=== PATIENT | male | born 1950 | race Caucasian/White ===

== ENCOUNTER 2021-04-26 19:31 | Inpatient (IN) | payer BC, MEDICARE, SELFPAY ==
[2021-04-26] VITALS (10 sets, daily range): BP systolic 108–129; BP diastolic 68–83; PULSE 82–100; RESP 16–20; TEMP 36.4–36.6; O2SAT 96–100; BMI 28.5; BMI 25.9
--- NOTE | 2021-04-26 | IR_ITS ---
APPROVED REPORT Patient Location: Emergent Structural Design Engineer: CHELSI Nascimento RT (R) PROCEDURES Left heart catheterization, coronary angiography. Successful balloon angioplasty and stenting of a subtotally occluded proximal LAD with MONI I flow reduced to 0% with MONI-3 flow utilizing a 2.5 into 22 mm resolute drug-eluting stent. Successful angioplasty and stenting of a 99% stenosed second obtuse marginal branch reduced to 0% with MONI-3 flow utilizing a 2.5 into 34 mm resolute drug-eluting stent No LV gram performed INDICATION Non-STEMI with ongoing discomfort Informed consent was obtained prior to the procedure. COMPLICATIONS None Estimated Blood Loss: Less than 20 ML TECHNIQUE One percent lidocaine was used to anesthetize the right groin. The right femoral artery was accessed via the Seldinger technique. A 4-Czech sheath was placed in the right femoral artery. The JL-4 and JR-4 catheter was also used to perform left heart catheterization left ventriculogram and selective coronary angiogram. At the end of the procedure the patient was transferred to the post-op holding area in stable condition for arterial sheath removal. FL 3.5 guiding catheter was used. 0.014 inch whisper wire was used to cross the left anterior descending coronary artery. 2.5 to 12 mm Euphora was used to dilate the proximal LAD. Intravenous heparin used in the procedure. ACT was 306. 2.5 to 22 mm resolute stent was then deployed at 16 eleonora. 0% residual MONI-3 flow was noted. There is a stepdown from the stent to the mid LAD with mild diffuse disease distally. Small diagonal branch is trapped inside the LAD less than 2 mm in size. Next a 0.014 inch BMW wire was passed into the obtuse marginal. A 2.25 into 12 mm NC Euphora was passed into this lesion. Balloon inflation carried up to 12 eleonora. Next a 2.5 into 34 mm resolute stent was deployed at this location. 0% residual MONI-3 flow was noted ANGIOGRAPHIC RESULTS The left main artery Left main is with mild plaque. The left anterior descending artery Subtotally occluded with MONI I flow The circumflex artery 50% mid circumflex stenosis second obtuse marginal with 99% stenosis The right coronary artery Multiple areas of 60% to 70% stenosis PLV branch 80 to 85% stenosis The MENDOZA ventriculogram reveals Not done IMPRESSION Non-STEMI with diaphoresis and chest discomfort. Successful revascularization of the LAD and second obtuse marginal with placement of stents outlined above PLAN 1. Dual antiplatelet therapy for 1 year, continued medical therapy, risk factor modification. LDL goal less than 70. RCA and PLV stenosis may be addressed at a later date if patient symptomatic Electronically signed by : Blaire Glez MD 04/26/2021 22:11:17
--- NOTE | 2021-04-26 19:32 | ECG_ITS ---
APPROVED REPORT Exam: Resting ECG HR:91 bpm ECG Measurements Heart Rate 91 AXES NH 176 P 61 QRSd 87 QRS 50 QT 381 T 93 QTc 430 Conclusion SINUS RHYTHM POSSIBLE RIGHT VENTRICULAR CONDUCTION DELAY [RSR (QR) IN V1/V2] SEPTAL MYOCARDIAL INFARCTION , OF INDETERMINATE AGE [40+ ms Q WAVE IN V1/V2] ABNORMAL ECG UNCONFIRMED REPORT Electronically signed by : Gomez Gar MD 04/27/2021 15:32:56
--- NOTE | 2021-04-26 19:32 | CT_ITS ---
PROCEDURE INFORMATION: Exam: CT Head Without Contrast Exam date and time: 04/26/2021 7:32 PM Age: 70 years old Clinical indication: Dizziness TECHNIQUE: Imaging protocol: Computed tomography of the head without contrast. Radiation optimization: All CT scans at this facility use at least one of these dose optimization techniques: automated exposure control; mA and/or kV adjustment per patient size (includes targeted exams where dose is matched to clinical indication); or iterative reconstruction. COMPARISON: No relevant prior studies available. FINDINGS: Brain: Mild generalized brain volume loss. Small remote lacunar infarcts in the bilateral basal ganglia regions. Mild patchy periventricular low attenuation suggesting chronic microangiopathy. No loss of limon-white differentiation or evidence of acute ischemia. No mass effect or midline shift. No intracranial hemorrhage. Cerebral ventricles: Within expected limits for age and brain volume status. No ventricular outflow obstruction. Paranasal sinuses: Mucosal thickening is present throughout the paranasal sinuses, suggesting chronic sinusitis. Mastoid air cells: Visualized mastoid air cells are well aerated. Bones/joints: No depressed or calvarial fracture. Soft tissues: Unremarkable. IMPRESSION: 1. No evidence of an acute intracranial abnormality. 2. Senescent changes with presumed sequela of chronic microangiopathy.
--- NOTE | 2021-04-26 19:41 | XR_ITS ---
PROCEDURE INFORMATION: Exam: XR Chest Exam date and time: 04/26/2021 7:41 PM Age: 70 years old Clinical indication: Other: Dizziness TECHNIQUE: Imaging protocol: XR of the chest. Views: 1 view. COMPARISON: No relevant prior studies available. FINDINGS: Lungs: Mild bibasilar subsegmental atelectasis. No consolidation. Pleural spaces: No pleural effusion. No pneumothorax. Heart/Mediastinum: Normal heart size. Bones/joints: Mild degenerative changes. IMPRESSION: Mild bibasilar atelectasis.
[2021-04-26 19:42] LABS: Basophils # 0.4 K/mm3 (0-0.2); Basophils % 3.8 % (0.1-2.0); Eosinophils # 0.2 K/mm3 (0.0-0.4); Eosinophils % 1.6 % (0.1-12.0); Hemoglobin 17.5 g/dL (14.1-18.0); Lymphocytes # 2.6 K/mm3 (0.7-4.5); Mean Corpuscular HGB Conc 31.9 g/dL (31.8-35.4); Mean Corpuscular Hemoglobin 29.4 pg (27.0-31.2); Mean Corpuscular Volume 92.3 fl (80-94); Mean Platelet Volume 10.5 fl (7.4-10.4); Monocytes # 0.7 K/mm3 (0.1-1.0); Monocytes % 6.3 % (1.7-9.3); Neutrophils # 7.1 K/mm3 (1.8-7.8); Neutrophils % 67.1 % (37.0-80.0); Platelet Count 241 K/mm3 (142-424); Red Blood Count 5.96 M/mm3 (4.60-6.20); Red Cell Distribution Width 13.3 % (11.5-17.5); White Blood Count 10.5 K/mm3 (4.8-10.8)
[2021-04-26 19:49] LABS: Alanine Aminotransferase 27 U/L (12-78); Albumin Level 4.6 g/dl (3.5-5.0); Albumin/Globulin Ratio 1.3 (1.1-1.8); Alkaline Phosphatase 93 U/L (38-126); Anion Gap 18.2 mEq/L (5-15); Aspartate Amino Transferase 26 U/L (17-59); Bilirubin,Total 0.8 mg/dl (0.2-1.3); Blood Urea Nitrogen 15 mg/dl (9-20); Calcium 9.6 mg/dl (8.4-10.2); Carbon Dioxide 23 mmol/L (22.0-30.0); Chloride 99 mmol/L (98-107); Creatinine Clearance Estimated 91 mL/min (50-200); Estimated Glomerular Filt Rate 95 ml/min (>60); GFR (African American) 115 ML/MIN (>60); Globulin 3.5 g/dL (1.3-3.2); Potassium 4.2 mmoL/L (3.5-5.1); Sodium 136 mmol/L (136-145); Total Protein,Serum 8.1 g/dl (6.3-8.2)
--- NOTE | 2021-04-26 19:50 | PC.NURSE ---
on phone with patient to go to cathead worker
--- NOTE | 2021-04-26 19:51 | HMH.EDDIZZ ---
ED Disposition Clinical Impression: Near syncope, Hyperglycemia STEMI (ST elevation myocardial infarction) Qualifiers: Involved coronary artery: unspecified coronary artery Qualified Code(s): I21.3 - ST elevation (STEMI) myocardial infarction of unspecified site Disposition: Admitted As Inpatient Condition on Discharge: Serious Referrals: Provider,Referral, [Primary Care Provider] - - Critical Care Critical Care Time: No Attestation: On 04/26/21, the high probability of a clinically significant, sudden or life threatening deterioration of the following system(s) required my full and direct attention, intervention and personal management. The time I documented below is in addition to time spent performing reported procedures but includes the following listed in this critical care notation. Medical Decision Making - Medical Records Medical records reviewed: Yes: I reviewed the patient's medical records. - Rasheed Inquiry Pt receiving controlled substance: No Vital Signs: 04/26/21 19:30 Temperature 97.8 F Temperature Source Oral Pulse Rate [Right] 86 Respiratory Rate 20 Blood Pressure [Right Arm] 129/83 Blood Pressure Mean [Right Arm] 98 02 Sat by Pulse Oximetry 100 - Lab Data Lab Results 04/26/21 19:31: WBC 10.5, RBC 5.96, Hgb 17.5, Hct 55.0 H, MCV 92.3, MCH 29.4, MCHC 31.9, RDW 13.3, Plt Count 241, MPV 10.5 H, Neut % (Auto) 67.1, Lymph % (Auto) 25.0, [place] % (Auto) 6.3, Eos % (Auto) 1.6, Baso % (Auto) 3.8 H, Neut # (Auto) 7.1, Lymph # (Auto) 2.6, [place] # (Auto) 0.7, Eos # (Auto) 0.2, Baso # (Auto) 0.4 H Result diagrams: 04/26/21 19:31 Orders (Tests/Meds): ED MEDICATIONS Generic Name Dose Route Start Last Admin Trade Name Freq PRN Reason Stop Dose Admin Sodium Chloride 1,000 mls @ 999 mls/hr 04/26/21 20:00 04/26/21 19:47 Sod Chlor 0.9% 1000ml Bag IV 04/26/21 21:00 999 mls/hr .Q1H1M CODY Administration Discontinued Medications Generic Name Dose Route Start Last Admin Trade Name Freq PRN Reason Stop Dose Admin Ondansetron HCl 4 mg 04/26/21 19:46 04/26/21 19:47 Ondansetron 4mg/2ml Vial IV 04/26/21 19:47 4 mg ONCE ONE Administration ORDERS Category Date Time Status CT head/brain wo con Stat Cat Scan 04/26/21 19:32 Ordered Chest XR -- portable [XR chest portable] Stat Exams 04/26/21 19:41 Ordered XR chest 2V Stat Exams 04/26/21 19:32 Stop Req C-Reactive Protein Stat Lab 04/26/21 19:31 Received Comprehensive Metabolic Panel Stat Lab 04/26/21 19:31 Received ESR [Erythrocyte Sedimentation Rate] Stat Lab 04/26/21 19:31 Received Free T4 (Free Thyroxine) Stat Lab 04/26/21 19:31 Received Hemoglobin A1C Stat Lab 04/26/21 19:31 Received Procalcitonin Stat Lab 04/26/21 19:31 Received TSH [Thyroid Stimulating Hormone] Stat Lab 04/26/21 19:31 Received Troponin I Q3H Lab 04/26/21 22:45 Ordered Troponin I Q3H Lab 04/27/21 01:45 Ordered Troponin I Stat Lab 04/26/21 19:31 Received Urinalysis and Microscopic Stat Lab 04/26/21 19:32 Ordered - ECG Data Tracing #1 I reviewed this ECG and interpreted as documented below: Normal jugular rate at 91 bpm, HI interval 176 ms, normal QTC. Sinus rhythm with elevation in V1, V2 as well as V3. Concern for ST elevation infarct. ECG initial impression date: 04/26/21 ECG initial impression time: 19:34 - HERMAN Score for Stemi Age of Patient: 70-79 years old Heart Rate: 70-89 bpm Systolic Blood Pressure: 120-139 mmhg Serum Creatinine: <0.40 mg/dl CHF Killip Class: IV-Cardiogenic Shock Other Risk Factors: ST Segment Deviation Stemi Risk Score: 206 Risk Stratification: 155-319 = High Risk Medical Decision Narrative: 70-year-old male presented to the emergency department after what appears to be a near syncopal episode. The patient is extremely nauseous on initial examination. He is very diaphoretic. Does not endorse any chest pain at this time, however he does have EKG changes concerning for
[2021-04-26 19:52] LABS: Glucose 413 mg/dl (74-100)
[2021-04-26 19:54] LABS: Hemoglobin A1C 12.8 % (4.0-6.0)
[2021-04-26 19:55] LABS: C-Reactive Protein 3.8 mg/L (0-4)
--- NOTE | 2021-04-26 20:02 | PC.NURSE ---
patients given his watch by Abrahan Carias RN
[2021-04-26 20:04] LABS: Acetone, Serum (Rapid) None Detected (None Detect)
[2021-04-26 20:05] LABS: Coronavirus 19, PCR Not Detected (NotDetected); Influenza A, PCR Not Detected (NotDetected); Influenza B, PCR Not Detected (NotDetected)
[2021-04-26 20:05] LABS: Troponin I 0.01 ng/ml (0.00-0.034)
[2021-04-26 20:08] LABS: Procalcitonin 0.053 ng/mL (0.0-2.0)
[2021-04-26 20:09] LABS: Free T4 (Free Thyroxine) 1.37 ng/dl (0.78-2.19)
[2021-04-26 20:15] LABS: Cholesterol 230 mg/dl (140-200); HDL Cholesterol 46 mg/dl (40-60); Triglycerides 135 mg/dl (30-150); VLDL Cholesterol 27 mg/dL (0-40)
[2021-04-26 20:26] LABS: Direct LDL Cholesterol 150.47 mg/dL (100-129)
[2021-04-26 20:37] LABS: Erythrocyte Sedimentation Rate 8 mm/hr (0-20)
--- NOTE | 2021-04-26 22:34 | PC.NURSE ---
patient up to floor from manager cardiac cath at this time.
[2021-04-26 22:44] LABS: CATHL Activated Clotting Time 231 SEC (74-125)
[2021-04-26 22:45] LABS: CATHL Activated Clotting Time 292 SEC (74-125)
[2021-04-26 22:45] LABS: CATHL Activated Clotting Time 306 SEC (74-125)
[2021-04-26 22:46] LABS: CATHL Activated Clotting Time 273 SEC (74-125)
[2021-04-26 22:54] LABS: POC Glucose,Bedside 443 (70-110)
[2021-04-27] VITALS (17 sets, daily range): BP systolic 95–109; BP diastolic 47–64; PULSE 80–90; RESP 16–20; TEMP 36.7–36.9; O2SAT 94–98; BMI 26.0
[2021-04-27 06:09] LABS: POC Glucose,Bedside 228 (70-110)
--- NOTE | 2021-04-27 06:18 | PC.NURSE ---
pt arrived to floor from catheterization laboratory technician this shift, right femoral cath site, with dressing in place, C/D/I, small amount of swelling noted at cath site, has remained on room air t/o shift, no complaints of SOA or chest pain, HR 82-94, systolic BP 97-116, FSBS have been elevated this shift, pt does state that he is not diabetic and does not use insulin, but was educated on the need for BS control and agreed to take insulin, pt stated during admission process that he had no health issues
[2021-04-27 07:13] LABS: Anion Gap 10.7 mEq/L (5-15); Blood Urea Nitrogen 13 mg/dl (9-20); Calcium 8.3 mg/dl (8.4-10.2); Carbon Dioxide 25 mmol/L (22.0-30.0); Chloride 106 mmol/L (98-107); Creatinine Clearance Estimated 84 mL/min (50-200); Estimated Glomerular Filt Rate 111 ml/min (>60); GFR (African American) 135 ML/MIN (>60); Glucose 239 mg/dl (74-100); Potassium 3.7 mmoL/L (3.5-5.1); Sodium 138 mmol/L (136-145)
[2021-04-27 07:16] LABS: Basophils # 0.1 K/mm3 (0-0.2); Eosinophils # 0.2 K/mm3 (0.0-0.4); Monocytes # 0.7 K/mm3 (0.1-1.0)
[2021-04-27 07:41] LABS: Basophils % 1.2 % (0.1-2.0); Eosinophils % 1.8 % (0.1-12.0); Hematocrit 47.5 % (42.0-52.0); Lymphocytes # 2.5 K/mm3 (0.7-4.5); Lymphocytes % 24.8 % (10-50); Mean Corpuscular HGB Conc 32.9 g/dL (31.8-35.4); Mean Corpuscular Hemoglobin 29.3 pg (27.0-31.2); Mean Platelet Volume 10.3 fl (7.4-10.4); Monocytes % 7.4 % (1.7-9.3); Neutrophils # 6.5 K/mm3 (1.8-7.8); Neutrophils % 64.8 % (37.0-80.0); Platelet Count 224 K/mm3 (142-424); Red Blood Count 5.34 M/mm3 (4.60-6.20); Red Cell Distribution Width 13.4 % (11.5-17.5); White Blood Count 9.9 K/mm3 (4.8-10.8)
[2021-04-27 07:47] LABS: Hemoglobin 15.6 g/dL (14.1-18.0)
--- NOTE | 2021-04-27 08:04 | HMH.PHAVTE ---
[facility] Pharmacy VTE Monitoring - Patient Demographics Admission date: 04/26/21 Report Date: 04/27/21 Time: 08:04 Allergies/Adverse Reactions: Patient Allergies No Known Allergies Allergy (Unverified 04/27/21 07:58) Height: 1.83 m Weight: 87.18 kg Patient Problems: Current Active Problems Near syncope (Acute) Hyperglycemia (Acute) STEMI (ST elevation myocardial infarction) (Acute) - VTE Risk Labs: VTE Related Lab Results Hgb 15.6 g/dL (14.1-18.0) D 04/27/21 06:36 Hct 47.5 % (42.0-52.0) 04/27/21 06:36 Plt Count 224 K/mm3 (142-424) 04/27/21 06:36 BUN 13 mg/dl (9-20) 04/27/21 06:36 Creatinine 0.70 mg/dl (0.66-1.25) 04/27/21 06:36 Estimated Creat Clear 84 mL/min (50-200) 04/27/21 06:36 Was VTE Risk Assessment Performed: Yes VTE Score: 4 VTE Risk Level: Low Risk - Prophylaxis VTE Prophylaxis Ordered?: Yes Types of VTE Prophylaxis: TEDS Knee High Location of Applied Device: Bilateral Lower Extremeties
--- NOTE | 2021-04-27 08:45 | HMH.HP ---
*Admission Date: 04/26/21 *Chief complaint: Dizziness *History of present illness: 70-year-old male presented to the emergency department after developing acute onset of lightheadedness, dizziness, nausea, shortness of breath at home while working on a vehicle. He never had any chest pain but in the ER had ST elevations in V1 and V2 and Wound Care Coordinator was activated. Patient was taken to the Wound Care Coordinator and underwent subsequent stenting of the LAD and second obtuse marginal. Cath report is below: ANGIOGRAPHIC RESULTS The left main artery Left main is with mild plaque. The left anterior descending artery Subtotally occluded with MONI I flow The circumflex artery 50% mid circumflex stenosis second obtuse marginal with 99% stenosis The right coronary artery Multiple areas of 60% to 70% stenosis PLV branch 80 to 85% stenosis The MENDOZA ventriculogram reveals Not done IMPRESSION Non-STEMI with diaphoresis and chest discomfort. Successful revascularization of the LAD and second obtuse marginal with placement of stents outlined above PLAN 1. Dual antiplatelet therapy for 1 year, continued medical therapy, risk factor modification. LDL goal less than 70. RCA and PLV stenosis may be addressed at a later date if patient symptomatic Patient has been admitted for telemetry monitoring post PA. At present he denies chest pain, shortness of breath. Patient has also been found to have diabetes with blood sugars over 400 through the emergency department. Patient has not received regular medical care as an adult per his choosing. He denies symptoms of hyperglycemia. [facility] History I have reviewed the patient's past medical history: Yes Medical History: Denies:: Cancer, Diabetes Mellitus Type 1, Diabetes Mellitus Type 2, MRSA *Have you ever received a pneumonia vaccine?: No *Have you received a flu vaccine this season?: No Other Surgeries: Yes: Hernia Repair Amputation: No Fractures: No - *Social History Smoking Status: Unknown if ever smoked Alcohol Intake: never *Occupational Status:: unemployed *Travel in the last 8 weeks: None Family Hx:: No significant family history Review of Systems - Review of Systems Review of systems:: pertinent systems reviewed and negative unless documented below - *Neurologic Denies headache(s) Meds Home Medications Medication Instructions Recorded Confirmed Type No Known Home Medications 04/26/21 04/26/21 History Allergies Allergy/AdvReac Type Severity Reaction Status Date / Time No Known Allergies Allergy Unverified 04/27/21 07:58 Exam Vital signs and Labs for Last 24 Hours: Temp Pulse Resp BP Pulse Ox 97.5 F L 85 16 109/62 L 97 04/26/21 22:35 04/27/21 06:00 04/27/21 06:00 04/27/21 06:00 04/27/21 06:00 Laboratory Results - last 24 hr 04/26/21 19:31: WBC 10.5, RBC 5.96, Hgb 17.5, Hct 55.0 H, MCV 92.3, MCH 29.4, MCHC 31.9, RDW 13.3, Plt Count 241, MPV 10.5 H, Neut % (Auto) 67.1, Lymph % (Auto) 25.0, [place] % (Auto) 6.3, Eos % (Auto) 1.6, Baso % (Auto) 3.8 H, Neut # (Auto) 7.1, Lymph # (Auto) 2.6, [place] # (Auto) 0.7, Eos # (Auto) 0.2, Baso # (Auto) 0.4 H 04/26/21 19:31: Sodium 136, Potassium 4.2, Chloride 99, Carbon Dioxide 23, Anion Gap 18.2 H, BUN 15, Creatinine 0.80, Estimated Creat Clear 91, Estimated GFR 95, Est GFR ( Amer) 115, Glucose 413 H*, Calcium 9.6, Total Bilirubin 0.8, AST 26, ALT 27, Alkaline Phosphatase 93, Troponin I 0.01, C-Reactive Protein 3.8, Total Protein 8.1, Albumin 4.6, Globulin 3.5 H, Albumin/Globulin Ratio 1.3, Procalcitonin 0.053, TSH 3.20 04/26/21 19:31: Hemoglobin A1c 12.8 H 04/26/21 19:31: Free T4 1.37 04/26/21 19:31: ESR 8 04/26/21 19:31: Acetone Level None detected 04/26/21 19:31: Triglycerides 135, Cholesterol 230 H, LDL Cholesterol Direct 150.47 H, VLDL Cholesterol 27, HDL Cholesterol 46, Cholesterol/HDL Ratio 5.0 H 04/26/21 20:00: SARS-CoV-2 (PCR) Not detected, Influenza A Untype (PCR) Not detected, Influenza Type B (PCR) Not detected
[2021-04-27 11:29] LABS: POC Glucose,Bedside 248 (70-110)
[2021-04-27 12:26] LABS: Troponin I 0.12 ng/ml (0.00-0.034)
[2021-04-27 16:50] LABS: POC Glucose,Bedside 262 (70-110)
[2021-04-27 21:29] LABS: POC Glucose,Bedside 245 (70-110)
[2021-04-28] VITALS (9 sets, daily range): BP systolic 89–121; BP diastolic 46–74; PULSE 78–93; RESP 16–20; TEMP 36.4–37; O2SAT 95–98; BMI 25.9
--- NOTE | 2021-04-28 05:08 | PC.NURSE ---
No acute changes this shift. Pt denies any discomfort or soa. (R) femoral cath site with DSG C/D/I. VSS. Pt remains on RA. Has ambulated to BR without difficulty. Medications administered per apr. FSBS 245 and 191. No other concerns. Will continue to monitor.
[2021-04-28 05:22] LABS: POC Glucose,Bedside 191 (70-110)
--- NOTE | 2021-04-28 07:43 | P.PN_ITS ---
Internal Medicine - PN: Subj *Date: 04/28/21 *Time: 07:43 Interval history: No acute events over the last 24 hours. Patient is ambulated without any further dizziness or syncope. He is tolerating diet. Exam Vital signs and Labs for Last 24 Hours: Temp Pulse Resp BP Pulse Ox 97.8 F 86 18 110/74 96 04/28/21 04:00 04/28/21 06:00 04/28/21 06:00 04/28/21 06:00 04/28/21 06:00 Laboratory Results - last 24 hr 04/27/21 06:36: WBC 9.9, RBC 5.34, Hgb 15.6 D, Hct 47.5, MCV 89.0, MCH 29.3, MCHC 32.9, RDW 13.4, Plt Count 224, MPV 10.3, Neut % (Auto) 64.8, Lymph % (Auto) 24.8, [place] % (Auto) 7.4, Eos % (Auto) 1.8, Baso % (Auto) 1.2, Neut # (Auto) 6.5, Lymph # (Auto) 2.5, [place] # (Auto) 0.7, Eos # (Auto) 0.2, Baso # (Auto) 0.1 04/27/21 11:21: POC Glucose 248 H 04/27/21 11:40: Troponin I 0.12 H 04/27/21 16:42: POC Glucose 262 H 04/27/21 20:41: POC Glucose 245 H 04/28/21 05:14: POC Glucose 191 H I & O for Last 24 hours: Intake & Output 04/25/21 04/26/21 04/27/21 04/28/21 11:59 11:59 11:59 11:59 Intake Total 732 / 732 1040 / 1040 Output Total 850 / 850 Balance -118 / -118 1040 / 1040 Weight 192 lb 3.2 oz - Constitutional no acute distress - *Routine Respiratory Exam Present: CTA bilaterally - *Routine Cardiovascular Exam Present: RRR - *Routine Abdominal Exam Present: soft, normoactive bowel sounds. Absent: tenderness Assessment and Plan (1) STEMI (ST elevation myocardial infarction) Status: Acute Qualifiers: Involved coronary artery: unspecified coronary artery Qualified Code(s): I21.3 - ST elevation (STEMI) myocardial infarction of unspecified site Category: Medical Code(s): I21.3 - ST elevation (STEMI) myocardial infarction of unspecified site (2) Type 2 diabetes mellitus with hyperglycemia Status: Acute Category: Medical Code(s): E11.65 - Type 2 diabetes mellitus with hyperglycemia - Assessment and plan all Dx Assessment and Plan for all problems:: 1. Continue dual antiplatelet therapy. Metoprolol tartrate will be changed to metoprolol succinate as prelim echocardiogram suggests reduced ejection fraction. CHELSEA inhibitor will be added. Continue statin. 2. Metformin 500 mg daily will be initiated this morning. Plan for up titration of Metformin as an outpatient as well as addition of an SGLT2 such as Farxiga or Jardiance once patient's blood pressure has stabilized and he has received maximum benefit from cardiac medications 3. Patient will be discharged home later today after cardiology evaluation 4. Nutrition consult is been ordered for patient's new diagnosis of diabetes.
--- NOTE | 2021-04-28 10:03 | HMH.CNCARD ---
History of Present Illness Consult date: 04/28/21 Requesting physician: Gomez Cervantes Consult reason: chest pain Chief complaint: STEMI Additional Medical History:: 1. STEMI, 04/27/21 A. Cardiac catheterization, 04/27/21, DOLLY placed to LAD and second OM. Remaining disease of RCA with recommendation for medical therapy 2. Newly diagnosed diabetes mellitus, 04/27/2021 3. Hyperlipidemia with LDL 150 and HDL 46 on 04/27/2021 A. Statin therapy started. History of present illness: 70-year-old male presented to the emergency department after developing acute onset of lightheadedness, dizziness, nausea, shortness of breath at home while working on a vehicle. He never had any chest pain but in the ER had ST elevations in V1 and V2 and Electrical Systems Design Engineer was activated. Patient was taken to the Electrical Systems Design Engineer and underwent subsequent stenting of the LAD and second obtuse marginal. Cath report is below: ANGIOGRAPHIC RESULTS The left main artery Left main is with mild plaque. The left anterior descending artery Subtotally occluded with MONI I flow The circumflex artery 50% mid circumflex stenosis second obtuse marginal with 99% stenosis The right coronary artery Multiple areas of 60% to 70% stenosis PLV branch 80 to 85% stenosis The MENDOZA ventriculogram reveals Not done IMPRESSION Non-STEMI with diaphoresis and chest discomfort. Successful revascularization of the LAD and second obtuse marginal with placement of stents outlined above PLAN 1. Dual antiplatelet therapy for 1 year, continued medical therapy, risk factor modification. LDL goal less than 70. RCA and PLV stenosis may be addressed at a later date if patient symptomatic Patient has been admitted for telemetry monitoring post AK. At present he denies chest pain, shortness of breath. Patient has also been found to have diabetes with blood sugars over 400 through the emergency department. Patient has not received regular medical care as an adult per his choosing. He denies symptoms of hyperglycemia. The above per Dr. Cervantes Patient confirms no history of chest pain and his symptoms of nausea and dizziness have resolved status post stenting. He denies any prior treatment for hypertension, hyperlipidemia or diabetes but has not sought medical care in many years. Non-smoker [facility] History Medical History: Denies:: Cancer, Diabetes Mellitus Type 1, Diabetes Mellitus Type 2, MRSA *Have you ever received a pneumonia vaccine?: No *Have you received a flu vaccine this season?: No Other Surgeries: Yes: Hernia Repair Amputation: No Fractures: No - *Social History Smoking Status: Unknown if ever smoked Alcohol Intake: never *Occupational Status:: unemployed *Travel in the last 8 weeks: None Family Hx:: No significant family history Meds Home Medications Medication Instructions Recorded Confirmed Type Aspirin [Aspirin 81mg EC Tab] 81 mg PO DAILY #30 tab 04/28/21 Rx Atorvastatin Calcium [Lipitor 40mg 40 mg PO HS #30 tab 04/28/21 Rx Tablet*] Metformin HCl [Glucophage 500mg 500 mg PO DAILYDM #30 tab 04/28/21 Rx Tablet] Ticagrelor [Brilinta 90mg 90 mg PO BID #60 tab 04/28/21 Rx Tablet] Allergies Allergy/AdvReac Type Severity Reaction Status Date / Time No Known Allergies Allergy Unverified 04/27/21 07:58 Exam Vital signs and Labs for Last 24 Hours: Temp Pulse Resp BP Pulse Ox 97.6 F 93 H 18 108/65 L 95 04/28/21 08:00 04/28/21 08:00 04/28/21 08:00 04/28/21 08:00 04/28/21 08:00 Laboratory Results - last 24 hr 04/27/21 11:21: POC Glucose 248 H 04/27/21 11:40: Troponin I 0.12 H 04/27/21 16:42: POC Glucose 262 H 04/27/21 20:41: POC Glucose 245 H 04/28/21 05:14: POC Glucose 191 H I & O for Last 24 hours: Intake & Output 04/25/21 04/26/21 04/27/21 04/28/21 11:59 11:59 11:59 11:59 Intake Total 732 / 732 1600 / 1600 Output Total 850 / 850 Balance -118 / -118 1600 / 1600 Weight 192 lb 3.2 oz - Constitutiona
[2021-04-28 11:22] LABS: POC Glucose,Bedside 299 (70-110)
--- NOTE | 2021-04-28 14:03 | DIET.NUTRFU ---
RD consulted for diabetic education, newly dx. Patient was not very receptive, is diabetic and she does most of the cooking so he did not seem interested. He did indicate he drinks 2-3 sodas/day and knows he needs to stop. Provide multiple handouts and contact information
--- NOTE | 2021-04-28 15:48 | PC.NURSE ---
Pt is alert and oriented x4. Lungs are clear, bowel sounds active x4. He remains on RA. He's been NSR on telemetry. Denies any chest pain or soa. He has ambulated to the bathroom with standby assist and tolerates without difficulty. Dressing to right groin is clean, dry and intact. Site is soft w/no sign of hematoma. Glucose has been elevated. Last check it was 299, 6 units of humalog administered per SSI. Appetite has been good. No complaints at this time. Bed locked and in the lowest position, call light within reach.
[2021-04-28 16:22] LABS: POC Glucose,Bedside 122 (70-110)
[2021-04-28 20:19] LABS: POC Glucose,Bedside 207 (70-110)
[2021-04-29] VITALS (9 sets, daily range): BP systolic 92–104; BP diastolic 42–65; PULSE 80–100; RESP 16–18; TEMP 36.6–37; O2SAT 96–98; BMI 25.2
--- NOTE | 2021-04-29 07:27 | HMH.ACPN2 ---
Internal Medicine - PN: Subj *Date: 04/29/21 *Time: 07:27 Interval history: Patient is remained stable overnight without arrhythmia or other acute events. He denies chest pain or dyspnea. Exam Vital signs and Labs for Last 24 Hours: Temp Pulse Resp BP Pulse Ox 98.4 F 80 17 99/58 L 97 04/29/21 04:00 04/29/21 04:00 04/29/21 04:00 04/29/21 04:00 04/29/21 04:00 Laboratory Results - last 24 hr 04/28/21 11:14: POC Glucose 299 H 04/28/21 16:11: POC Glucose 122 H 04/28/21 20:12: POC Glucose 207 H I & O for Last 24 hours: Intake & Output 04/26/21 04/27/21 04/28/21 04/29/21 11:59 11:59 11:59 11:59 Intake Total 732 / 732 1600 / 1600 480 / 480 Output Total 850 / 850 775 / 775 0 / 0 Balance -118 / -118 825 / 825 480 / 480 Weight 192 lb 3.2 oz 191 lb 12.835 oz 185 lb 14.4 oz Narrative: Patient looks comfortable. Lungs remain clear. Heart has a regular rate and rhythm. Abdomen is soft. Lower extremities are without edema. Assessment and Plan (1) STEMI (ST elevation myocardial infarction) Status: Acute Qualifiers: Involved coronary artery: unspecified coronary artery Qualified Code(s): I21.3 - ST elevation (STEMI) myocardial infarction of unspecified site Category: Medical Code(s): I21.3 - ST elevation (STEMI) myocardial infarction of unspecified site (2) Type 2 diabetes mellitus with hyperglycemia Status: Acute Category: Medical Code(s): E11.65 - Type 2 diabetes mellitus with hyperglycemia (3) Hyperlipidemia associated with type 2 diabetes mellitus Status: Acute Category: Medical Code(s): E11.69 - Type 2 diabetes mellitus with other specified complication; E78.5 - Hyperlipidemia, unspecified (4) Ischemic cardiomyopathy Status: Acute Category: Medical Code(s): I25.5 - Ischemic cardiomyopathy - Assessment and plan all Dx Assessment and Plan for all problems:: 1. Await further cardiology recommendations regarding patient's ischemic cardiomyopathy 2. Continue Metformin in the morning and Lantus if in the evening. 3. Disposition-anticipate discharge today with close outpatient follow-up
--- NOTE | 2021-04-29 10:38 | HMH.PNCARD ---
Subjective Date: 04/29/21 Time: 10:39 Interval history: 70-year-old white male in bed in no acute distress. Denies any chest pain, pressure or tightness. He has had no recurrence of his dizziness which was his symptoms associated with his PA. Telemetry shows sinus rhythm with no significant arrhythmias noted. Echocardiogram EF is 25-30%. Patient is a LifeVest candidate and will proceed with ordering this. Exam Vital signs and Labs for Last 24 Hours: Temp Pulse Resp BP Pulse Ox 98.4 F 95 H 17 103/61 L 96 04/29/21 08:00 04/29/21 08:00 04/29/21 08:00 04/29/21 08:00 04/29/21 08:00 Laboratory Results - last 24 hr 04/28/21 11:14: POC Glucose 299 H 04/28/21 16:11: POC Glucose 122 H 04/28/21 20:12: POC Glucose 207 H I & O for Last 24 hours: Intake & Output 04/26/21 04/27/21 04/28/21 04/29/21 11:59 11:59 11:59 11:59 Intake Total 732 / 732 1600 / 1600 840 / 840 Output Total 850 / 850 775 / 775 0 / 0 Balance -118 / -118 825 / 825 840 / 840 Weight 192 lb 3.2 oz 191 lb 12.835 oz 185 lb 14.4 oz - Constitutional no acute distress - *Routine Respiratory Exam Present: CTA bilaterally - *Routine Cardiovascular Exam Present: RRR Progress Note: A&P (1) STEMI (ST elevation myocardial infarction) Status: Acute (2) Type 2 diabetes mellitus with hyperglycemia Status: Acute (3) Hyperlipidemia associated with type 2 diabetes mellitus Status: Acute (4) Ischemic cardiomyopathy Status: Acute Assessment and Plan for All Diagnoses:: 1. STEMI status post DOLLY to LAD and second OM, on aspirin and Brilinta. 2. Hyperlipidemia, on atorvastatin 40 mg daily 3. Ischemic cardiomyopathy, patient is on lisinopril 5 mg daily and metoprolol succinate XL 25 mg daily. Will order LifeVest today. Hopefully patient can be fitted and discharged later today. Patient will need to be off work for 6 weeks and complete cardiac rehab prior to consideration of returning to work. He will need reevaluation of his ejection fraction in 90 days before considering AICD implantation.
[2021-04-29 11:34] LABS: POC Glucose,Bedside 153 (70-110)
--- NOTE | 2021-04-29 14:25 | PC.NURSE ---
rounded on patient who was resting at this time. call light within reach
--- NOTE | 2021-04-29 16:51 | PC.NURSE ---
No acute changes noted this shift, patient awaiting approval for life vest for discharge, remains on RA, denies any CP or SOA, no s/s of distress noted, vss, will continue to monitor.
[2021-04-30] VITALS: PULSE 80
[2021-04-30 01:33] LABS: POC Glucose,Bedside 237 (70-110)
[2021-04-30 01:33] LABS: POC Glucose,Bedside 198 (70-110)
[2021-04-30 04:00] VITALS: BP 103/67; PULSE 78; PULSE 80; RESP 16; TEMP 36.4; O2SAT 98
--- NOTE | 2021-04-30 04:32 | PC.NURSE ---
pt has rested well this shift, remains on room air with O2 sats 97-98%, HR 78-84, no complaints of pain or SOA, has ambulated independently
[2021-04-30 05:00] VITALS: BMI 25.1
[2021-04-30 06:22] LABS: POC Glucose,Bedside 155 (70-110)
--- NOTE | 2021-04-30 07:35 | HMH.DCSUM ---
General - General Admission date:: 04/26/21 Discharge date: 04/30/21 HPI HPI: 70-year-old male presented to the emergency department after developing acute onset of lightheadedness, dizziness, nausea, shortness of breath at home while working on a vehicle. He never had any chest pain but in the ER had ST elevations in V1 and V2 and [employer] was activated. Patient was taken to the [employer] and underwent subsequent stenting of the LAD and second obtuse marginal. Cath report is below: ANGIOGRAPHIC RESULTS The left main artery Left main is with mild plaque. The left anterior descending artery Subtotally occluded with MONI I flow The circumflex artery 50% mid circumflex stenosis second obtuse marginal with 99% stenosis The right coronary artery Multiple areas of 60% to 70% stenosis PLV branch 80 to 85% stenosis The MENDOZA ventriculogram reveals Not done IMPRESSION Non-STEMI with diaphoresis and chest discomfort. Successful revascularization of the LAD and second obtuse marginal with placement of stents outlined above PLAN 1. Dual antiplatelet therapy for 1 year, continued medical therapy, risk factor modification. LDL goal less than 70. RCA and PLV stenosis may be addressed at a later date if patient symptomatic Patient has been admitted for telemetry monitoring post IA. At present he denies chest pain, shortness of breath. Patient has also been found to have diabetes with blood sugars over 400 through the emergency department. Patient has not received regular medical care as an adult per his choosing. He denies symptoms of hyperglycemia. Hospital Course Hospital Course: Patient was admitted for further monitoring and care related to STEMI. He remained on telemetry during hospitalization without development of arrhythmias. Patient underwent echocardiogram on April 28 which showed severe reduction in ejection fraction of 25 to 30%. This places patient at risk for sudden cardiac and LifeVest was arranged. He had no further chest pain. Patient did not have any further lightheadedness, dizziness, presyncopal symptoms. He denies shortness of breath remainder of hospitalization. Patient's blood pressure was soft which required slow initiation of medications. Once LifeVest was arranged and patient was fitted he was discharged home. Patient will follow up with cardiology clinic in 1 week. Patient will follow up with his primary care physician, Dr. Nell Latham, in 1 week Patient was diagnosed with diabetes during hospitalization with severe elevations in blood sugars on presentation and A1c confirmed diabetes with a level of 12.8. Patient was covered with sliding scale insulin initially. He was started on Lantus 10 units in the evening, Metformin 500 mg once a day. Nutrition consult was placed. Patient's blood sugars did improve during hospitalization primarily hovering in the mid to high 100s with occasional rise to the 200s. In the future patient will benefit from an SGLT2 of his blood pressure tolerates as well as GLP-1 agonist. Further adjustments in regimen will be made as an outpatient Objective Vital signs: Temp Pulse Resp BP Pulse Ox 97.6 F 78 16 103/67 L 98 04/30/21 04:00 04/30/21 04:00 04/30/21 04:00 04/30/21 04:00 04/30/21 04:00 no acute distress - *Routine Respiratory Exam Present: CTA bilaterally - *Routine Cardiovascular Exam Present: RRR - *Routine Abdominal Exam Present: soft, normoactive bowel sounds. Absent: tenderness Results Labs on day of discharge: Labs from last 24 hours 04/30/21 04/29/21 04/29/21 05:57 20:40 17:00 POC Glucose 155 H 237 H 198 H 04/29/21 05:10 POC Glucose 153 H DS: Diagnosis - Discharge Diagnosis (1) STEMI (ST elevation myocardial infarction) Status: Acute (2) Type 2 diabetes mellitus with hyperglycemia Status: Acute (3) Hyperlipidemia associated with type 2 diabetes mellitus Status: Acute
[2021-04-30 08:00] VITALS: BP 111/65; PULSE 78; PULSE 80; RESP 16; TEMP 36.5; O2SAT 99
--- NOTE | 2021-04-30 10:03 | HMH.PNCARD ---
Subjective Date: 04/30/21 Time: 10:03 Interval history: 70-year-old white male in bed in no acute distress. Telemetry shows no arrhythmias overnight. Vital signs are stable. Patient is anxious to go home. The LifeVest order was placed but has not been approved at this time. I did contact the rep for [employer] and she states that with the patient's insurance he can take up to 5 days to get approval. Exam Vital signs and Labs for Last 24 Hours: Temp Pulse Resp BP Pulse Ox 97.7 F 78 16 111/65 99 04/30/21 08:00 04/30/21 08:00 04/30/21 08:00 04/30/21 08:00 04/30/21 08:00 Laboratory Results - last 24 hr 04/29/21 05:10: POC Glucose 153 H 04/29/21 17:00: POC Glucose 198 H 04/29/21 20:40: POC Glucose 237 H 04/30/21 05:57: POC Glucose 155 H I & O for Last 24 hours: Intake & Output 04/27/21 04/28/21 04/29/21 04/30/21 11:59 11:59 11:59 11:59 Intake Total 732 / 732 1600 / 1600 840 / 840 960 / 960 Output Total 850 / 850 775 / 775 0 / 0 600 / 600 Balance -118 / -118 825 / 825 840 / 840 360 / 360 Weight 192 lb 3.2 oz 191 lb 12.835 oz 185 lb 14.4 oz 185 lb 7 oz - Constitutional no acute distress - *Routine HEENT Exam Head: Present: normocephalic Eye: Present: EOMI, PERRL ENT: Present: mucous membranes moist - *Routine Neck Exam Present: supple. Absent: lymphadenopathy - *Routine Respiratory Exam Present: CTA bilaterally - *Routine Cardiovascular Exam Present: RRR - *Routine Abdominal Exam Present: soft, normoactive bowel sounds. Absent: tenderness - *Routine Extremities Exam Absent: cyanosis, clubbing, edema - *Routine Skin Exam Present: warm. Absent: rash - *Routine Neurological Exam Present: alert, oriented X3 Progress Note: A&P (1) STEMI (ST elevation myocardial infarction) Status: Acute (2) Type 2 diabetes mellitus with hyperglycemia Status: Acute (3) Hyperlipidemia associated with type 2 diabetes mellitus Status: Acute (4) Ischemic cardiomyopathy Status: Acute Assessment and Plan for All Diagnoses:: 1. STEMI status post DOLLY to LAD and second OM, on aspirin and Brilinta. 2. Hyperlipidemia, on atorvastatin 40 mg daily 3. Ischemic cardiomyopathy, patient is on lisinopril 5 mg daily and metoprolol succinate XL 25 mg daily. LifeVest approval pending. Patient will need to be off work for 6 weeks and complete cardiac rehab prior to consideration of returning to work. He will need reevaluation of his ejection fraction in 90 days before considering AICD implantation. Patient is stable for discharge from a cardiac standpoint. If the LifeVest is approved and the patient will be fitted at home. Home medication recommendations: Aspirin 81 mg daily Brilinta 90 mg twice daily Atorvastatin 40 mg daily Lisinopril 5 mg daily Metoprolol succinate 25 mg daily Follow-up in our office in 1 week.
[2021-04-30 11:13] VITALS: BP 121/68; PULSE 85; RESP 18; TEMP 36.6; O2SAT 98
--- NOTE | 2021-04-30 12:04 | HMH.PHACLD ---
Flavio Jackson has received discharge medication counseling on the following medications: PATIENT STARTED ON ASPIRIN EC 81 MG DAILY, BRILINTA 90 MG BID, ATORVASTATIN 40 MG HS, METOPROLOL SUCCINATE 25 MG DAILY, AND LISINOPRIL 5 MG DAILY.
--- NOTE | 2021-05-01 13:40 | CARE MANAGER ---
Contacted patient's regarding follow up from hospital discharge. They picked medications up yesterday and have already taken them. They have follow up appointment with PCP next week and Dr. Durant the next week. They will be keeping in touch regarding the LifeVest. KELBY Dash
== END 2021-04-30 11:53 | disposition home or self-care (01) | DRG 247 ==
LOC: ER 20:20 → CATHLAB 20:31 → 2ND 20:44
PROVIDERS: Emergency Medicine; Internal Medicine Cardiovascular Disease; Admitting Provider Emergency Medicine; Emergency Provider Emergency Medicine; PCP Family Medicine; Visit Provider Family Medicine
PROC: 027035Z Dilation of Coronary Artery, One Artery with Two Drug-eluting Intraluminal Devices, Percutaneous Approach (ICD-10-PCS; principal; 2021-04-26 20:10)
DX: I21.4 Non-ST elevation (NSTEMI) myocardial infarction (principal); I25.10 Atherosclerotic heart disease of native coronary artery without angina pectoris; E11.65 Type 2 diabetes mellitus with hyperglycemia; I25.5 Ischemic cardiomyopathy
CPT/HCPCS: 36415; 70450; 71045; 80048; 80053; 80061; 82009; 82962; 83036; 84145; 84439; 84443; 84484; 85025; 85347; 85651; 86140; 92929; 92941; 93005; 93306; 93458; 96365; 96375; 99152; 99153; 99285; C1725; C1769; C1874; C1876; C1894; C9601; C9606; C9803; J1327; J1644; J2405; Q9967; U0003; U0005

== ENCOUNTER → 2021-08-04 14:00 | Outpatient (CLI) | payer BC, SELFPAY ==
--- NOTE | 2021-08-04 14:00 | CA_ITS ---
APPROVED REPORT EXAM: Limited 2D Echocardiogram Relay Associate: Erika Buenrostro RVT Ht: 6 ft 0 in Wt: 177lbs BSA: 2.02 BP: 128/69 mmHg Indications: EF CHECK,EF OF 25-30% ON 04/28/21,CHF,CM STEMI HX,DM,HLD,EX SMOKER 2D Dimensions LVOT 1.97 cm (M/F) 1.5-2.5 M-Mode Dimensions RVDd 2.44 cm (0.9-2.6) LA Diam 3.69 cm (1.9-4.0) LVDd 4.64 cm (3.5-5.7) Ao Diam 3.12 cm (2.0-3.7) LVDs 3.96 cm (3.5-5.7) IVSd 0.53 cm (0.6-1.1) PWd 0.89 cm (0.6-1.1) EF (Teich) 44.30% FS 22.00% EDV (Teich) 122.70 mL ESV (Teich) 68.30 mL Conclusion 1. Limited echocardiogram was performed to evaluate left ventricular systolic function. 2. Normal left ventricular size, estimated ejection fraction is 42%. There is moderate hypokinesis involving the mid to distal septum and anterior apical wall. 3. No significant pericardial effusion noted. Electronically signed by : Darien Obrien MD 08/04/2021 18:31:15
== END ==
PROVIDERS: PCP Family Medicine; Visit Provider Physician Assistant
DX: I25.10 Atherosclerotic heart disease of native coronary artery without angina pectoris (principal); R55 Syncope and collapse; I50.22 Chronic systolic (congestive) heart failure
CPT/HCPCS: 93308

== ENCOUNTER → 2021-11-06 14:38 | Outpatient (CLI) | payer BC, SELFPAY ==
[2021-11-06 15:36] LABS: Basophils # 0.3 K/mm3 (0-0.2); Basophils % 2.4 % (0.1-2.0); Eosinophils # 0.5 K/mm3 (0.0-0.4); Eosinophils % 4.7 % (0.1-12.0); Hematocrit 47.4 % (42.0-52.0); Hemoglobin 15.5 g/dL (14.1-18.0); Lymphocytes # 3.6 K/mm3 (0.7-4.5); Lymphocytes % 34.6 % (10-50); Mean Corpuscular HGB Conc 32.7 g/dL (31.8-35.4); Mean Corpuscular Volume 91.9 fl (80-94); Mean Platelet Volume 9.4 fl (7.4-10.4); Monocytes # 0.8 K/mm3 (0.1-1.0); Monocytes % 7.9 % (1.7-9.3); Neutrophils # 5.3 K/mm3 (1.8-7.8); Neutrophils % 50.4 % (37.0-80.0); Platelet Count 256 K/mm3 (142-424); Red Blood Count 5.16 M/mm3 (4.60-6.20); Red Cell Distribution Width 13.4 % (11.5-17.5); White Blood Count 10.5 K/mm3 (4.8-10.8)
[2021-11-06 15:54] LABS: Alanine Aminotransferase 23 U/L (12-78); Albumin Level 4.2 g/dl (3.5-5.0); Alkaline Phosphatase 63 U/L (38-126); Anion Gap 18.3 mEq/L (5-15); Aspartate Amino Transferase 25 U/L (17-59); Bilirubin,Direct 0.1 mg/dl (0.0-0.4); Bilirubin,Indirect 0.1 mg/dL (0.0-0.9); Bilirubin,Total 0.2 mg/dl (0.2-1.3); Bilirubin,Unconjugated 0.1 mg/dL (0.0-1.1); Blood Urea Nitrogen 21 mg/dl (9-20); Calcium 9.3 mg/dl (8.4-10.2); Carbon Dioxide 24 mmol/L (22.0-30.0); Chloride 99 mmol/L (98-107); Chol/HDL Ratio 2.3 (1-3.5); Cholesterol 115 mg/dl (140-200); Estimated Glomerular Filt Rate 83 ml/min (>60); GFR (African American) 100 ML/MIN (>60); Glucose 146 mg/dl (74-100); HDL Cholesterol 49 mg/dl (40-60); Potassium 4.3 mmoL/L (3.5-5.1); Sodium 137 mmol/L (136-145); Total Protein,Serum 7.2 g/dl (6.3-8.2); Triglycerides 92 mg/dl (30-150); VLDL Cholesterol 18 mg/dL (0-40)
[2021-11-06 16:05] LABS: Direct LDL Cholesterol 49.86 mg/dL (100-129)
== END ==
PROVIDERS: PCP Family Medicine; Visit Provider Nurse Practitioner
DX: E11.69 Type 2 diabetes mellitus with other specified complication (principal); I25.10 Atherosclerotic heart disease of native coronary artery without angina pectoris; E78.5 Hyperlipidemia, unspecified; Z79.84 Long term (current) use of oral hypoglycemic drugs
CPT/HCPCS: 36415; 80048; 80061; 80076; 85025

== ENCOUNTER → 2021-11-11 12:56 | Outpatient (CLI) | payer BC, SELFPAY ==
--- NOTE | 2021-11-11 12:57 | CA_ITS ---
APPROVED REPORT EXAM: Comprehensive 2D, Doppler, and color-flow Echocardiogram Vinyl Dipper: Tatyana Romo RT(R) Ht: 6 ft 0 in Wt: 177lbs BSA: 2.02 BP: 119/59 mmHg Indications: CP, EF check, limited echo, CM, CAD, DM M-Mode Dimensions RVDd 2.21 cm (0.9-2.6) LVDd 4.30 cm (3.5-5.7) LVDs 3.21 cm (3.5-5.7) IVSd 0.80 cm (0.6-1.1) PWd 1.00 cm (0.6-1.1) EF (Teich) 50.30% FS 25.30% EDV (Teich) 83.10 mL ESV (Teich) 41.30 mL Conclusion 1. Limited echocardiogram was performed to evaluate left ventricular systolic function. Normal left ventricular size with estimated ejection fraction 45%, there is moderate hypokinesis involving mid to distal septum and apical wall. 2. No significant pericardial effusion noted. Electronically signed by : Darien Obrien MD 11/11/2021 18:37:06
== END ==
PROVIDERS: PCP Family Medicine; Visit Provider Nurse Practitioner
DX: I25.5 Ischemic cardiomyopathy (principal); R94.31 Abnormal electrocardiogram [ECG] [EKG]
CPT/HCPCS: 93308

== ENCOUNTER 2022-09-18 10:32 | Emergency (ER) | payer BC, SELFPAY ==
[2022-09-18 10:33] VITALS: BP 166/111; PULSE 88; RESP 17; TEMP 36.4; O2SAT 99; BMI 25.3
[2022-09-18 10:38] VITALS: BP 201/98; PULSE 95; O2SAT 99
--- NOTE | 2022-09-18 10:54 | XR_ITS ---
FINAL REPORT CLINICAL HISTORY: fall, knee injury, swelling FINDINGS: LEFT KNEE 4 views of the left knee were obtained. There is a vertical fracture with mild displacement of the lateral third of the patella. A large joint effusion is seen. Soft tissues are unremarkable. IMPRESSION: Vertical fracture with mild displacement of the patella with large joint effusion. Reviewed, Interpreted and Dictated by Abrahan Gill MD Transcribed by Quynh Hamilton Authenticated and [facility]
--- NOTE | 2022-09-18 10:55 | HMH.EDGENADL ---
Discharge Plan Disposition Patient Disposition: Home, Self-Care Prescriptions Prescriptions: No Action metformin 500 mg tablet 1,000 mg PO BID Jardiance 10 mg tablet 10 mg PO DAILY Patient Comments: TAKE 1 TABLET BY MOUTH ONCE DAILY metoprolol succinate 50 mg tablet extended release 24 hr See Rx Instructions .ROUTE .COMPLEX Qty: 90 3RF Dose Instruction: Take 1 tablet by mouth once daily Rx Instructions: Take 1 tablet by mouth once daily lisinopril 20 mg tablet 20 mg PO DAILY Qty: 90 1RF atorvastatin 40 MG tablet 40 mg PO HS Qty: 30 11RF aspirin 81 MG tablet,delayed release (DR/EC) 81 mg PO DAILY Qty: 30 11RF ticagrelor 90 MG tablet 90 mg PO BID Qty: 60 11RF Referrals Follow up/Referrals: Ana Latham MD [Primary Care Provider] - See instructions Vahe Crawley DO [Staff Physician] - See instructions (1-2 weeks if your symptoms are not improving ) Clinical Impressions Clinical Impression: Contusion of knee, left, Hemarthrosis of knee, left Discharge ED Provider: Amanda Wolf General Adult HPI General Chief complaint: PAIN Stated complaint: AO 09/18 fall, left knee pain/laceration Time Seen by Provider: 09/18/22 10:51 History of Present Illness HPI narrative: 72-year-old man here with injury to the left knee. States that he had a mechanical fall fell directly onto the left knee no twisting injury no pop. He states its strong not unstable and feeling but has significant pain and swelling over the left knee since the injury. He does take antiplatelet agents with a history of cardiac disease and stents. He is not on other anticoagulants. No injuries elsewhere. Related Data Home Medications Medication Instructions Recorded Confirmed metformin 500 mg tablet 1,000 mg PO BID 06/03/21 08/06/22 empagliflozin 10 mg tablet 10 mg PO DAILY 08/04/21 08/06/22 (Jardiance) Previous Rx's Medication Instructions Recorded aspirin 81 mg tablet,delayed 81 mg PO DAILY #30 tabs 04/28/21 release atorvastatin 40 mg tablet 40 mg PO HS #30 tabs 04/28/21 ticagrelor 90 mg tablet 90 mg PO BID #60 tabs 04/28/21 metoprolol succinate 50 mg See Rx Instructions .Route 09/01/21 tablet,extended release 24 hr .COMPLEX #90 tabs lisinopril 20 mg tablet 20 mg PO DAILY #90 tabs 06/10/22 Allergies Allergy/AdvReac Type Severity Reaction Status Date / Time No Known Allergies Allergy Verified 08/06/22 08:54 [facility] Disclaimer: The information contained in this section may have been updated after the patient was seen, as this information can be updated by other users. Medical History CAD (coronary artery disease) Presence of stent in coronary artery in patient with coronary artery disease Social History Smoking Status: Former smoker alcohol intake: never current occupational status: unemployed Travel in the last 8 weeks: Inside the [place] ROS Obtained: Yes All systems reviewed & no additional complaints except as documented Physical Exam General General appearance: alert Respiratory Respiratory exam: Present normal lung sounds bilaterally; Absent wheezes Cardiovascular Cardiovascular exam: Present regular rate; Absent tachycardia Extremities Exam Extremities exam: Present other (Left anterior knee there is a an abrasion over the anterior patella patella is not dislocated but there is a large to moderate joint effusion on the left in comparison with the right ligamental exam is normal with normal anterior posterior draw normal medial or lateral stress normal distal neurovasc) Neurological Exam Neurological exam: Present alert and oriented X3 Medical Decision Making Rasheed Inquiry Pt receiving controlled substance: No Vital Signs: 09/18/22 10:33 Temperature 97.6 F Temperature Source Oral Pulse Rate [Radial] 88 Respiratory Rat
[2022-09-18 11:00] VITALS: BP 166/96; PULSE 94; RESP 20; O2SAT 98
[2022-09-18 11:30] VITALS: BP 186/92; PULSE 86; RESP 20; O2SAT 99
[2022-09-18 11:55] VITALS: BP 186/92; PULSE 79; RESP 18; TEMP 36.6; O2SAT 99
== END 2022-09-18 11:55 | disposition home or self-care (01) ==
PROVIDERS: Emergency Provider Student in an Organized Health Care Education/Training Program; PCP Family Medicine
DX: M25.062 Hemarthrosis, left knee (principal); S80.02XA Contusion of left knee, initial encounter; I25.10 Atherosclerotic heart disease of native coronary artery without angina pectoris; Z79.02 Long term (current) use of antithrombotics/antiplatelets; Z87.891 Personal history of nicotine dependence; W19.XXXA Unspecified fall, initial encounter
CPT/HCPCS: 73562; 99283

== ENCOUNTER → 2022-11-06 13:48 | Outpatient (CLI) | payer BC, SELFPAY ==
--- NOTE | 2022-11-06 13:51 | XR_ITS ---
FINAL REPORT CLINICAL HISTORY: lt knee pain post fall September 19 COMPARISON: 09/18/2022 FINDINGS: Left knee Three views were obtained. There is a fracture of the lateral patella. Small joint effusion is identified. IMPRESSION: Fracture as above. Reviewed, Interpreted and Dictated by Josue Gillette III, MD Transcribed by Gisselle Bryant Authenticated and [facility]
== END ==
PROVIDERS: PCP Family Medicine; Visit Provider Orthopaedic Surgery
DX: M25.562 Pain in left knee (principal)
CPT/HCPCS: 73562